=== PATIENT | male | born 1965 | race Caucasian/White ===

== ENCOUNTER 2018-11-12 11:44 | Inpatient (IN) | payer OTHER ==
[~2018-11-12] VITALS: Ht 177.8 cm; Wt 79.5 kg
[2018-11-12] MEDS ORDERED: CARAFATE1 G/10 ML PO (12:01)
[2018-11-12] MEDS ORDERED: PEPCID AC20 MG PO (12:01)
[2018-11-12] MEDS ORDERED: ROBAXIN500 MG PO (12:02)
[2018-11-12] MEDS ORDERED: BUTALB-APAP-CA1 EACH PO (12:02)
[2018-11-12] MEDS ORDERED: PERCOCET 10-321 EAC1 PO (12:02)
[2018-11-12 12:40] LABS: BASOPHILS 0.3 % (0-2); EOSINOPHILS 1.2 % (0-7); HEMATOCRIT 21.8 % (42.0-54.0); IMMATURE GRANULOCYTES 0.4 % (0-5); LYMPHOCYTES 19.6 % (15-50); MCHC 25.2 g/dL (31.0-37.0); MCV 66.5 fL (80.0-100.0); MEAN PLATELET VOLUME 9.7 fL (7.4-10.4); MONOCYTES 6.6 % (2-11); NEUTROPHILS 71.9 % (40-80); PLATELET COUNT 489 10x3/uL (130-400); RBC 3.28 10x6/uL (4.20-6.10); RDW 19.5 % (11.5-14.5); WBC 10.1 10x3/uL (4.8-10.8)
[2018-11-12 12:55] LABS: HEMOGLOBIN 5.5 g/dL (13.5-17.5); MCH 16.8 pg (26.0-34.0)
[2018-11-12 12:56] LABS: ALBUMIN 3.4 g/dL (3.4-5.0); ALKALINE PHOSPHATASE 100 U/L (46-116); ALT (SGPT) 25 U/L (10-68); BILIRUBIN - TOTAL 0.23 mg/dL (0.2-1.3); CALC OSMOLALITY 278 mosm/kg (275-300); CALCIUM 8.2 mg/dL (8.5-10.1); CARBON DIOXIDE 23.6 mmol/L (21.0-32.0); CHLORIDE - SERUM 105 mmol/L (98-107); GLUCOSE 109 mg/dL (74-106); POTASSIUM - SERUM 4.1 mmol/L (3.5-5.1); PROTEIN - SERUM 7.2 g/dL (6.4-8.2); SODIUM 140 mmol/L (136-145); UREA NITROGEN 11 mg/dL (7-18); eGFR NON AFRICAN AMERICAN 82 mL/min (90-120)
[2018-11-12 13:11] LABS: APPEARANCE CLEAR (CLEAR); BACTERIA FEW /hpf (NONE SEEN); BILIRUBIN NEGATIVE (NEGATIVE); COLOR YELLOW (YELLOW); EPITHELIAL CELLS RARE /hpf (0-5); GLUCOSE NEGATIVE (NEGATIVE); KETONE NEGATIVE (NEGATIVE); NITRITE NEGATIVE (NEGATIVE); PROTEIN TRACE mg/dL (NEGATIVE); UROBILINOGEN NORMAL (NORMAL); WHITE CELLS - URINE RARE /hpf (0-5)
--- NOTE | 2018-11-12 15:00 | NUR ---
PT STABLE, CALL LIGHT WITHIN REACH, DENIES NEEDS, WILL CONTINUE TO MONITOR.
[2018-11-12 15:08] LABS: % SATURATION 3 % (15-55); IRON 13 ug/dl (35-150); TOTAL IRON BIND CAPACITY 422 ug/dl (260-445); UNSAT IRON BIND CAPACITY 409 ug/dl (150-375)
--- NOTE | 2018-11-12 17:08 | NUR ---
PT VERBAL AGREED TO BLOOD TRANSFUSION.
[2018-11-12 17:23] VITALS: BP 144/78
[2018-11-12 20:00] VITALS: BP 123/63
--- NOTE | 2018-11-12 20:15 | NUR ---
BLOOD TRANSFUSION COMPLETE AT THIS TIME. PT STABLE, CALL LIGHT WITHIN REACH, WILL CONTINUE TO MONITOR.
[2018-11-12 20:20] VITALS: BP 118/64
[2018-11-12 21:20] VITALS: BP 129/63
[2018-11-12 21:29] LABS: CREATINE KINASE 223 UL (21-232); TROPONIN-I 0.031 ng/mL (0.000-0.060)
--- NOTE | 2018-11-12 21:37 | NUR ---
ATTEMPTED TO CALL REPORT TO SANCHEZ. SANCHEZ UNAVAILABLE AT THIS TIME.
--- NOTE | 2018-11-12 21:48 | NUR ---
CALL PLACED TO ER TO RECIEVE REPORT FROM NITZA, WAITED ON HOLD FOR OVER 5 MINUTES, MESSAGE LEFT ER CHARGE NURSE TO HAVE NITZA CALL SANCHEZ WHEN SHE IS AVAILABLE.
[2018-11-12 22:00] VITALS: BP 125/62
--- NOTE | 2018-11-12 22:15 | NUR ---
REPORT CALLED TO [facility]. PT TO ROOM 2137. PT STABLE CALL LIGHT WITHIN REACH, WILL CONTINUE TO MONITOR.
--- NOTE | 2018-11-12 23:15 | NUR ---
RECIEVED TO ROOM 213 FROM ER VIA W/C. PT A&O. RESPERATIONS EVEN ON RA. VITALS STABLE. IV TO RIGHT WRIST WITH PROTONIX INFUSING. PLACED ON TELEMETRY. HISTORY AND MED REC OBTAINED. AT BED SIDE, BED LOW, CL IN REACH.
--- NOTE | 2018-11-12 23:23 | NUR ---
MORPHINE TRACK RIDER INITIATED PER ORDERS. ATIVAN 1 MG GIVEN AT PT REQUEST FOR S/S AGITATION. JELLO AND CHICKEN BROTH ALSO GIVEN AT PT REQUEST. NO OTHER NEEDS EXPRESSED AT THIS TIME.
--- NOTE | 2018-11-12 23:50 | NUR ---
CONSENTS SIGNED FOR BLOOD, EXPLAINED TO PT THAT A SECOND UNIT OF BLOOD WILL BE GIVEN SHORTLY, HOWEVER I WAS GOING TO LET THE PT GET A FEW DOSES OF PAIN MEDICATION VIA SERVICE DELIVERY MANAGER BEFORE THE BLOOD IS INFUSED BECAUSE I'D HAVE TO SUSPEND THE SERVICE DELIVERY MANAGER TO INFUSE THE PRBCs. PT STATED UNDERSTANDING.
[2018-11-13] VITALS: BP 123/63
--- NOTE | 2018-11-13 01:00 | NUR ---
SECOND UNIT OF PRBCs INFUSING TO RIGHT ARM IV, VITALS STABLE, ASLEEP AT BED SIDE.
[2018-11-13 01:53] LABS: CKMB 1.9 U/L (0.0-3.6); CREATINE KINASE 188 UL (21-232); TROPONIN-I 0.045 ng/mL (0.000-0.060)
--- NOTE | 2018-11-13 03:40 | NUR ---
PRBCS FINISHED INFUSING, LINE FLUSHING WITH NS. VITALS STABLE. NO S/S ADVERSE REACTION NOTED.
[2018-11-13 04:00] VITALS: BP 117/54
[2018-11-13 06:02] LABS: BASOPHILS 0.4 % (0-2); EOSINOPHILS 2.2 % (0-7); HEMATOCRIT 24.8 % (42.0-54.0); IMMATURE GRANULOCYTES 0.3 % (0-5); LYMPHOCYTES 34.8 % (15-50); MCHC 27.4 g/dL (31.0-37.0); MEAN PLATELET VOLUME 10.1 fL (7.4-10.4); MONOCYTES 8.5 % (2-11); NEUTROPHILS 53.8 % (40-80); RBC 3.57 10x6/uL (4.20-6.10); RDW 21.8 % (11.5-14.5); WBC 7.7 10x3/uL (4.8-10.8)
[2018-11-13 06:07] LABS: HEMOGLOBIN 6.8 g/dL (13.5-17.5); MCV 69.5 fL (80.0-100.0); PLATELET COUNT 381 10x3/uL (130-400)
[2018-11-13 06:18] LABS: ALBUMIN 2.8 g/dL (3.4-5.0); ALKALINE PHOSPHATASE 78 U/L (46-116); ALT (SGPT) 19 U/L (10-68); BILIRUBIN - TOTAL 0.24 mg/dL (0.2-1.3); CALCIUM 7.6 mg/dL (8.5-10.1); CARBON DIOXIDE 23.8 mmol/L (21.0-32.0); CHLORIDE - SERUM 109 mmol/L (98-107); CREATININE - SERUM 0.9 mg/dL (0.6-1.3); GLUCOSE 94 mg/dL (74-106); MAGNESIUM - SERUM 1.9 mg/dL (1.8-2.4); POTASSIUM - SERUM 4.2 mmol/L (3.5-5.1); PROTEIN - SERUM 5.9 g/dL (6.4-8.2); SODIUM 141 mmol/L (136-145); eGFR NON AFRICAN AMERICAN > 90 mL/min (90-120)
[2018-11-13 06:21] LABS: CALC OSMOLALITY 278 mosm/kg (275-300); UREA NITROGEN 7 mg/dL (7-18)
--- NOTE | 2018-11-13 07:14 | NUR ---
ROUNDING DONE WITH PATIENT LAYING ON BACK, AROUSES EASILY WHEN I WALK IN. BED ALARM IS ON AND IN USE. ON ROOM AIR. RIGHT AC PIV SEEN WITH ORANGE SWAB CAP IN USE.
--- NOTE | 2018-11-13 07:37 | NUR ---
ROUNDING DONE WITH PATIENT INFORMED OF BEING NPO FOR PROCEDURE TODAY WITH DR ZUNIGA. RIGHT WRIST PIV SEEN WITH PROTONIX INFUSING AT 10 CC/HR, NS INFUSING AT 100 CC/HR, AND FIELD SALES CONSULTANT WITH MS. ON HEART MONITOR SHOWING SR, HR 68. PERMITS ARE SIGNED FOR PROCEDURE TODAY. I COULD NOT FIND A BLOOD CONSENT FROM THE ER OR LAST SHIFT AND PATIENT HAD BEEN RECEIVING BLOOD.
[2018-11-13 08:48] VITALS: BP 112/44
[2018-11-13 08:55] LABS: CKMB 2.1 U/L (0.0-3.6); CREATINE KINASE 163 UL (21-232)
[2018-11-13 10:22] LABS: FOLATE (FOLIC ACID) - SERUM 13.6 ng/mL (>3.0)
--- NOTE | 2018-11-13 10:27 | NUR ---
I CALLED JOSE IN OUTPATIENT TO SEE WHEN PATIENT MIGHT BE GOING TO GI PROCEDURE. SHE REPORTS THAT THEY HAVE NOT HEARD FROM DR ZUNIGA AT THIS TIME, MUST BE IN CLINIC. THIS IS RELAYED TO PATIENT AND .
[2018-11-13 11:16] VITALS: BP 103/60
--- NOTE | 2018-11-13 11:16 | NUR ---
JOSE FROM OUTPATIENT CALLED AND TELLS ME THAT DR ZUNIGA WILL START PROCEDURES AROUND 2 PM TODAY. [facility] IS NOT IN THE ROOM AT THIS ITME.
[2018-11-13 12:39] VITALS: Ht 177.8 cm; Wt 79.5 kg
--- NOTE | 2018-11-13 12:56 | NUR ---
STILL NPO FOR PROCEDURE THIS AFTERNOON.
--- NOTE | 2018-11-13 15:00 | NUR ---
TO GI LAB VIA BED.
--- NOTE | 2018-11-13 16:07 | NUR ---
1600-PATIENT RECEIVED BACK FROM GI LAB. HOOKED UP TO VITAL SIGNS. DENIES NEEDS AT THIS TIME. IS UPSET THAT SHE HAD NOT SEEN A DOCTOR YET. JOSEFINA GUILLORY APN MADE ROUNDS AND SAW THE PATIENT WITH THE NOT PRESENT. I PAGED JOSEFINA TO HAVE HER HAVE DR MANNING COME TALK TO PATIENT AND TO HELP WITH THEIR CONCERNS. 1612-JOSEFINA CALLED BACK AND I EXPRESSED MY CONCERNS. SHE SAID SHE WILL TRY TO FIND DR MANNING AND HAVE HER COME TALK TO [facility].
--- NOTE | 2018-11-13 17:02 | NUR ---
I CALLED THE BLOOD BANK TO SEE IF THE BLOOD IS READY. IT IS NOT. THEY WILL CALL ME WHEN IT IS READY. THIS IS RELAYED TO PATIENT AND .
--- NOTE | 2018-11-13 17:45 | NUR ---
NEW ORDERS PER DR ZUNIGA. DR ZUNIGA IN TO SEE NATIVIDADTENT AND . ALL QUESTIONS WERE ANSWERED BY HIM.
--- NOTE | 2018-11-13 18:11 | NUR ---
WELL SHOOTER STOPPED ORDERED. PAGE INTO JOSEFINA GUILLORY APN FOR CONTINUATION OF HOME MEDICATIONS OF PERCOCET AND ROBAXIN. AWAITING CALL BACK.
--- NOTE | 2018-11-13 18:22 | NUR ---
DR ZUNIGA HERE ON FLOOR AND I ASKED HIM ABOUT CONTINUING ORAL PAIN MEDICATIONS AND ROBAXIN. NEW ORDERS RECEIVED.
--- NOTE | 2018-11-13 19:28 | NUR ---
EVENING ROUNDS COMPLETED. REPORT RECEIVED. PT SITTING UP IN BED WITH EYES OPEN, ORDERED PRBC INFUSING ORDERED. STARTED BY TITUS YEH RN. INTRODUCED SELF TO PT. PT DENIES FURTHER NEEDS AT THIS TIME. NO S/S OF DISTRESS. BED IN LOW POSITION. CALL LIGHT IN REACH. WILL CTM.
[2018-11-13 20:00] VITALS: BP 116/69
--- NOTE | 2018-11-13 21:48 | NUR ---
FIRST UNIT PRBC HAS FINISHED, VITALS STABLE. NO S/S OF DISTRESS NOTED. WILL CTM.
[2018-11-13 23:00] VITALS: BP 130/66
--- NOTE | 2018-11-13 23:17 | NUR ---
2ND UNIT PRBC NOW INFUSING, INITIATED BY DONY TONY RN, WITNESSED BY MED SCALES LPN. VITALS STABLE. WILL CTM.
--- NOTE | 2018-11-14 02:20 | NUR ---
I have reviewed this patient and I concur with the Shift Assessment completed by the Licensed Practical Nurse today this shift.
--- NOTE | 2018-11-14 02:44 | NUR ---
PRBC INFUSION HAS COMPLETED. VITALS STABLE. NO S/S OF DISTRESS. WILL CTM.
[2018-11-14 04:30] VITALS: BP 119/69
[2018-11-14 05:48] LABS: ALBUMIN 2.7 g/dL (3.4-5.0); ALKALINE PHOSPHATASE 81 U/L (46-116); ALT (SGPT) 19 U/L (10-68); BILIRUBIN - TOTAL 0.26 mg/dL (0.2-1.3); CALC OSMOLALITY 280 mosm/kg (275-300); CALCIUM 7.7 mg/dL (8.5-10.1); CARBON DIOXIDE 23.3 mmol/L (21.0-32.0); CHLORIDE - SERUM 108 mmol/L (98-107); CREATININE - SERUM 0.8 mg/dL (0.6-1.3); GLUCOSE 93 mg/dL (74-106); POTASSIUM - SERUM 4.4 mmol/L (3.5-5.1); PROTEIN - SERUM 5.9 g/dL (6.4-8.2); SODIUM 142 mmol/L (136-145); UREA NITROGEN 6 mg/dL (7-18); eGFR NON AFRICAN AMERICAN > 90 mL/min (90-120)
[2018-11-14 06:58] LABS: BASOPHILS 0.5 % (0-2); EOSINOPHILS 1.8 % (0-7); IMMATURE GRANULOCYTES 0.2 % (0-5); LYMPHOCYTES 24.1 % (15-50); MCHC 29.3 g/dL (31.0-37.0); MEAN PLATELET VOLUME 10.3 fL (7.4-10.4); MONOCYTES 9.5 % (2-11); NEUTROPHILS 63.9 % (40-80); PLATELET COUNT 400 10x3/uL (130-400); RBC 4.04 10x6/uL (4.20-6.10); RDW 22.4 % (11.5-14.5); WBC 6.6 10x3/uL (4.8-10.8)
[2018-11-14 06:59] LABS: HEMOGLOBIN 8.5 g/dL (13.5-17.5); MCV 71.8 fL (80.0-100.0)
--- NOTE | 2018-11-14 07:16 | NUR ---
PT AWAKE, PLESANT MOOD. NO QUESTIONS/CONCNERNS AT THIS TIME. AT BEDSIDE. CL IN REACH. SRX2.
[2018-11-14 09:30] VITALS: BP 125/88
[2018-11-14 12:26] VITALS: BP 126/75
[2018-11-14] MEDS ORDERED: SYNTHROID50 MCG ×2 (13:18→13:19)
[2018-11-14] MEDS ORDERED: SYMBICORT 16010.2 GM (13:19)
--- NOTE | 2018-11-14 15:35 | NUR ---
STARTED 1ST UNIT OF BLOOD. TOLERATING WELL
--- NOTE | 2018-11-14 15:35 | NUR ---
UNIT OF PRBCS HUNG AT THIS TIME. VITAL SIGNS STABLE. MONITOR SHOWING SR 65, AGREE WITH LPNS ASSESSMENT. TOLL TRANSMISSION WORKER TO STAY WITH PT TO MONITOR HIM FOR FIRST 15MIN.
--- NOTE | 2018-11-14 16:36 | NUR ---
BUMPED UP BLOOD TO 125. PT TOLERATING WELL. NO COMPLAINTS/CONCERNS VOICED. CL INREACH. SRX2.
[2018-11-14 17:16] VITALS: BP 126/74
--- NOTE | 2018-11-14 17:39 | NUR ---
PT ALMOST DONE WITH UNIT 1 OF BLOOD. WILL START SECOND UNIT CONSECUTIVLY. NO CONCERNS/COMPLAINTS. TOLERATING BLOOD WELL. NO S./S OF REACTION. CL IN REACH. SRX2.
--- NOTE | 2018-11-14 19:37 | NUR ---
EVENING ROUNDS COMPLETED. REPORT RECEIVED. PT SITTING UP IN BED WITH EYES OPEN, RR EVEN AND UNLABORED. AT BEDSIDE. SECOND UNIT OF PACKED RED BLOOD CELLS INFUSING ORDERED. INTRODUCED SELF TO PT. PT DENIES FURTHER NEEDS AT THIS TIME. NO S/S OF DISTRESS NOTED. CALL LIGHT IN REACH. WILL CTM.
[2018-11-14 19:55] VITALS: BP 159/72
[2018-11-14 23:55] VITALS: BP 133/73
--- NOTE | 2018-11-15 00:37 | NUR ---
I have reviewed this patient and I concur with the Shift Assessment completed by the Licensed Practical Nurse today this shift.
[2018-11-15 03:55] VITALS: BP 128/93
[2018-11-15 06:18] LABS: BASOPHILS 0.4 % (0-2); EOSINOPHILS 2.7 % (0-7); HEMATOCRIT 34.5 % (42.0-54.0); IMMATURE GRANULOCYTES 0.4 % (0-5); LYMPHOCYTES 32.8 % (15-50); MCH 22.5 pg (26.0-34.0); MCHC 30.1 g/dL (31.0-37.0); MEAN PLATELET VOLUME 10.1 fL (7.4-10.4); MONOCYTES 12.6 % (2-11); NEUTROPHILS 51.1 % (40-80); PLATELET COUNT 339 10x3/uL (130-400); RBC 4.63 10x6/uL (4.20-6.10); RDW 22.5 % (11.5-14.5); WBC 7.1 10x3/uL (4.8-10.8)
[2018-11-15 06:29] LABS: HEMOGLOBIN 10.4 g/dL (13.5-17.5)
[2018-11-15 06:30] LABS: MCV 74.5 fL (80.0-100.0)
[2018-11-15 06:38] LABS: ALBUMIN 2.8 g/dL (3.4-5.0); ALKALINE PHOSPHATASE 92 U/L (46-116); ALT (SGPT) 18 U/L (10-68); BILIRUBIN - TOTAL 0.24 mg/dL (0.2-1.3); CALC OSMOLALITY 283 mosm/kg (275-300); CALCIUM 7.9 mg/dL (8.5-10.1); CARBON DIOXIDE 23.6 mmol/L (21.0-32.0); CHLORIDE - SERUM 109 mmol/L (98-107); GLUCOSE 112 mg/dL (74-106); MAGNESIUM - SERUM 2.1 mg/dL (1.8-2.4); POTASSIUM - SERUM 3.9 mmol/L (3.5-5.1); PROTEIN - SERUM 6.2 g/dL (6.4-8.2); SODIUM 143 mmol/L (136-145); UREA NITROGEN 7 mg/dL (7-18); eGFR NON AFRICAN AMERICAN 82 mL/min (90-120)
--- NOTE | 2018-11-15 07:09 | NUR ---
PT WOKE UP EASILY I ENTERED THE ROOM. STATES HE'LL BE HAPPY TO GO HOME THIS A.M. NO CONCERNS/COMPLAINTS AT THIS TIME. CL IN REACH. SRX2.
[2018-11-15 08:05] VITALS: BP 144/76
[2018-11-15] MEDS ORDERED: SYNTHROID50 MCG PO (10:59)
[2018-11-15 12:26] VITALS: BP 148/68
--- NOTE | 2018-11-15 12:46 | NUR ---
PT UP AMBULATING, WAITING ON DISCHARGE PAPERS. DENIES ANY NEEDS, AGREE WITH LPNS ASSESSMENT. NAD NOTED.
--- NOTE | 2018-11-15 13:53 | NUR ---
IV REMOVED, TIP INTACT. PT AMBULATED SELF OUT. NO CONCERNS/QUESTIONS AT THIS TIME. FAMILY DRIVING
--- NOTE | 2018-11-16 11:53 | MORECARE ---
CASE MANAGEMENT DISCHARGE SUMMARY PATIENT: OZ AGUILERA UNIT: [id number] ADM DATE: 11/12/18 AGE: 53 : 61 SEX: M ROOM/BED: D.2137 AUTHOR: MARTIN RUEDA PHYSICIAN: REFERRING PHYSICIAN: BRITANY LAZCANO MD DATE OF SERVICE: 11/16/18 Discharge Plan Patient Name: [facility]Z [facility]A [facility] [facility] 1965 Planned Disposition: Home Anticipated Discharge Date: 11/15/18 Discharge Date: 11/15/2018 Expected LOS: 3 Initial Reviewer: [email or web address] Initial Review Date: 11/16/2018 Generated: 11/16/18 12:53 pm Patient Name: OZ AGUILERA Page [id number] at 1153 All edits/amendments must be made on the electronic document DICTATION DATE: 11/16/18 115 PASTRY SOUS CHEF: DILLAN 11/16/18 1152 RPT#: [id number] DC DATE:11/15/18 STATUS: DIS IN [facility] [address] [place] [address] END OF REPORT
== END 2018-11-15 13:54 | disposition home or self-care (01) | DRG 811 ==
LOC: D.ER 11:44 → D.EDHOLD 17:34 → D.M2 17:34
PROVIDERS: Family Medicine; Internal Medicine Gastroenterology; ADMIT Emergency Medicine; ATTEND Emergency Medicine
PROC: 0DJ08ZZ Inspection of Upper Intestinal Tract, Via Natural or Artificial Opening Endoscopic (ICD-10-PCS; principal; 2018-11-13 15:00)
DX: D50.9 Iron deficiency anemia, unspecified (principal); K28.4 Chronic or unspecified gastrojejunal ulcer with hemorrhage; F17.213 Nicotine dependence, cigarettes, with withdrawal; E03.9 Hypothyroidism, unspecified; G89.29 Other chronic pain; M54.9 Dorsalgia, unspecified; K21.0 Gastro-esophageal reflux disease with esophagitis; K31.84 Gastroparesis

== ENCOUNTER → 2018-12-02 11:43 | Outpatient (CLI) | payer OTHER ==
[2018-11-13 12:39] VITALS: BMI 25.1
[~2018-12-02 11:43] MED LIST: BUTALB-APAP-CA1 EACH PO; CARAFATE1 G/10 ML PO; PEPCID AC20 MG PO; PERCOCET 10-321 EAC1 PO; ROBAXIN500 MG PO; SYMBICORT 16010.2 GM; SYNTHROID50 MCG; SYNTHROID50 MCG PO
[2018-12-02 12:05] LABS: BASOPHILS 0.2 % (0-2); EOSINOPHILS 2.9 % (0-7); HEMATOCRIT 39.2 % (42.0-54.0); HEMOGLOBIN 11.3 g/dL (13.5-17.5); IMMATURE GRANULOCYTES 0.3 % (0-5); MCH 22.7 pg (26.0-34.0); MCHC 28.8 g/dL (31.0-37.0); MCV 78.7 fL (80.0-100.0); MONOCYTES 7.9 % (2-11); NEUTROPHILS 67.7 % (40-80); PLATELET COUNT 332 10x3/uL (130-400); RBC 4.98 10x6/uL (4.20-6.10); RDW 26.6 % (11.5-14.5); WBC 9.9 10x3/uL (4.8-10.8)
== END | disposition home or self-care (01) ==
LOC: D.LAB 08:00
PROVIDERS: ATTEND Internal Medicine Gastroenterology
DX: D50.9 Iron deficiency anemia, unspecified (principal)

== ENCOUNTER → 2018-12-11 13:50 | Outpatient (CLI) | payer OTHER ==
[2018-11-13 12:39] VITALS: BMI 25.1
[2018-12-11 15:10] LABS: % SATURATION 7 % (15-55); IRON 31 ug/dl (35-150); TOTAL IRON BIND CAPACITY 393 ug/dl (260-445); UNSAT IRON BIND CAPACITY 362 ug/dl (150-375)
[2018-12-14 12:12] LABS: FOLATE (FOLIC ACID) - SERUM 9.1 ng/mL (>3.0)
== END | disposition home or self-care (01) ==
LOC: D.LAB 13:50
PROVIDERS: ATTEND Internal Medicine Gastroenterology
DX: D64.9 Anemia, unspecified (principal)

== ENCOUNTER 2019-04-05 12:40 | Outpatient (CLI) | payer OTHER ==
[~2019-04-05] VITALS: Ht 177.8 cm; Wt 75.9 kg
[2019-04-05 13:30] VITALS: BP 139/89; Ht 177.8 cm; Wt 75.9 kg
--- NOTE | 2019-04-05 15:59 | NUR ---
1400 PT AWARE OF AN ANTIBODY ISSUE WITH HIS BLOOD TYPING. 1540 PT ATE 80% OF LUNCH SERVED. PT WATCHING TV AWAITING READINESS OF BLOOD.
--- NOTE | 2019-04-05 16:30 | NUR ---
1620 1ST UNIT BLOOD CHECKED AT BEDSIDE BY THIS NURSE AND JOSE PITT RN, INITIATED AT 50/CC/HR.
--- NOTE | 2019-04-05 16:48 | NUR ---
1635 DENIES PROBLEMS WITH TRANSFUSION, RATE INCREASED TO 250/CC/HR. 1645 DENIES PROBLEMS WITH TRANSFUSION, 1650 BLOOD BANK PERSONNEL HERE DISCUSSING ANTIBODY WITH PT.
--- NOTE | 2019-04-05 17:20 | NUR ---
1720 ROOM CHECK, BLOOD INFUSING WELL, RATE INCREASED TO 275/CC/HR.
--- NOTE | 2019-04-05 17:40 | NUR ---
1740 ROOM CHECK, DENIES PROBLEMS, IV SITE IS PATENT, HAS A FEMALE VISITOR. DECLINED OFFER OF FOOD.
--- NOTE | 2019-04-05 18:24 | NUR ---
1800 FIRST UNIT BLOOD HAS COMPLETED, LINE BEING FLUSHED WITH NS. 1808 2ND UNIT BLOOD CHECKED AT BEDSIDE, INITIATED AT 50/CC/HR.
--- NOTE | 2019-04-05 18:30 | NUR ---
1820 DENIES PROBLEMS WITH TRANSFUSION, RATE INCREASED TO 275/CC/HR. VISITING WITH FAMILY.
--- NOTE | 2019-04-05 19:08 | NUR ---
1900 BLOOD INFUSING AT 275/CC/HR. DENIES PROBLEMS.
--- NOTE | 2019-04-05 19:41 | NUR ---
1939 BLOOD HAS COMPLETED, LINE BEING FLUSHED WITH NS. DENIES PROBLEMS WITH TRANSFUSION.
--- NOTE | 2019-04-05 20:11 | NUR ---
2009 NO PROBLEMS WITH TRANSFUSION REPORTED, IV DC'D WITH CATH INTACT DC INSTS REVIEWED VOICED UNDERSTANDING RELEASED AMB. PER PT. CHOICE. STATES ALREADY FEELING BETTER.
== END 2019-04-05 20:10 | disposition home or self-care (01) ==
LOC: D.OPS 12:40
PROVIDERS: ATTEND Nurse Practitioner Family
DX: D64.9 Anemia, unspecified (principal)

== ENCOUNTER → 2021-01-08 08:20 | Outpatient (CLI) | payer OTHER ==
[2020-10-19 15:48] VITALS: BMI 23.1
--- NOTE | 2021-01-05 10:55 | NUR ---
CONFIRMED PT APPT FOR 01/08/21 THINNERS: NO ALLX: NKDA ARRIVAL TIME: 0800
[~2021-01-08 08:20] MED LIST changes: +AMOXICILLIN500 M1 PO; +ASA; +BUTAL; +CAF; +CLEOCIN HCL300 MG PO; +HYDROCODON-ACE1 EA10 PO
--- NOTE | 2021-01-08 09:31 | NUR ---
PATIENT CONSENTED FOR A CERVICAL MYELOGRAM WITH CT TO FOLLOW. NO BLOOD THINNERS AND NO KNOWN DRUG ALLERGIES. TIME OUT 0915 BY SONIA MASSEY (R) AND DR CROWDER. 12 CC OF ISOV[address] 300M WAS USED DURING THE PROCEDURE.
== END | disposition home or self-care (01) ==
LOC: D.RAD 01-05 14:00
PROVIDERS: ATTEND Neurological Surgery
DX: M48.061 Spinal stenosis, lumbar region without neurogenic claudication (principal); M54.12 Radiculopathy, cervical region